=== PATIENT | female | born 1940 | race Caucasian/White ===

== ENCOUNTER → 2017-01-28 | Day surgery (SDC) | payer OTHER ==
[~2017-01-28] MED LIST: ALPHAGAN-P OPHTH 1 DOSE AFFEYE ONE; TETRACAINE 0.5% OPHTH 1 DOSE AFFEYE ONE
[2017-01-28 12:44] VITALS: BP 124/65
== END ==
LOC: SURG1 12:20
PROVIDERS: ATTEND Ophthalmology
PROC: 08QC3ZZ Repair Right Iris, Percutaneous Approach (ICD-10-PCS; principal; 2017-01-28 21:00)
DX: H40.10X1 Unspecified open-angle glaucoma, mild stage (principal)
CPT/HCPCS: 65855